=== PATIENT | male | born 1995 | race Caucasian/White ===

== ENCOUNTER 2016-12-13 08:49 | Emergency (ER) | payer BC ==
[~2016-12-13] VITALS: Ht 175.3 cm; Wt 90.7 kg
[~2016-12-13 08:49] MED LIST: ACETAMINOPHEN325 M1 PO; COUMADIN2.5 MG PO; NORCO 5-325 TA1 EACH PO; WARFARIN SODIUM5 MG; WARFARIN SODIUM5 MG PO
[2016-12-13] MEDS ORDERED: ECPIRIN325 MG PO (09:08)
== END 2016-12-13 09:25 | disposition home or self-care (01) ==
LOC: ED 08:49
DX: I82.811 Embolism and thrombosis of superficial veins of right lower extremity (principal); Z79.01 Long term (current) use of anticoagulants
CPT/HCPCS: 99282

== ENCOUNTER 2019-11-29 17:09 | Emergency (ER) | payer BC ==
[~2019-11-29] VITALS: Ht 175.3 cm; Wt 90.7 kg
[~2019-11-29 17:09] MED LIST changes: +ECPIRIN325 MG PO
== END 2019-11-29 20:01 | disposition home or self-care (01) ==
LOC: ED 17:09
DX: L97.919 Non-pressure chronic ulcer of unspecified part of right lower leg with unspecified severity (principal); Z79.82 Long term (current) use of aspirin; Z91.030 Bee allergy status
CPT/HCPCS: 99282